=== PATIENT | female | born 1995 | race Caucasian/White ===

== ENCOUNTER 2019-12-25 10:22 | Emergency (ER) | payer OTHER ==
[2019-12-25 10:43] VITALS: TEMP 98.4; BMI 24.5
[2019-12-25] MEDS ORDERED: ONDANSETRON 4 MG/2 ML VIAL IVPUSH ONE (11:08)
[2019-12-25] MEDS ORDERED: SODIUM CHLORIDE 1,000 ML IV STA ×2 (11:08→13:40)
[2019-12-25] MEDS ORDERED: PANTOPRAZOLE SODIUM 40 MG VIAL IVPUSH ONE (11:12)
[2019-12-25] MEDS ORDERED: KETOROLAC TROMETHAMINE 30 MG/1 ML VIAL IVPUSH ONE (11:12)
[2019-12-25 11:39] LABS: EPI CELLS 5.3 /HPF (0-5/HPF); HYALINE CASTS 31 /lpf (0-8); URINE APPEARANCE CLOUDY; URINE BACTERIA 105.8 /hpf (NEGATIVE); URINE BILIRUBIN NEGATIVE (NEGATIVE); URINE COLOR DK YELLOW; URINE GLUCOSE (UA) NEGATIVE (NEGATIVE); URINE KETONE 3+ (NEGATIVE); URINE LEUK ESTERASE TRACE (NEGATIVE); URINE NITRITE NEGATIVE (NEGATIVE); URINE PROTEIN TRACE (NEGATIVE); URINE RBC 3 /hpf (0-4); URINE WBC 9 /hpf (0-5)
[2019-12-25] MEDS ORDERED: KETOROLAC TROMETHAMINE 30 MG/1 ML VIAL ONE (12:21)
[2019-12-25] MEDS ORDERED: ONDANSETRON 4 MG/2 ML VIAL ONE (12:22)
[2019-12-25] MEDS ORDERED: PANTOPRAZOLE SODIUM 40 MG VIAL ONE (12:22)
[2019-12-25 12:26] LABS: BASO % 0.3 % (0-2.0); EOS % 0.3 % (0-4.5); HEMATOCRIT 37.3 % (32.4-45.2); HEMOGLOBIN 13.2 GM/dL (10.7-15.3); LYMPH % 20.7 % (8-40); MCHC 35.3 g/dl (32.0-36.0); MEAN CELL VOLUME 96.5 fl (80-96); MEAN PLT VOLUME 9.1 fl (7.5-11.1); MONO % 4.6 % (3.8-10.2); NEUT % 74.1 % (42.8-82.8); PLATELET COUNT 189 K/MM3 (134-434); RBC 3.86 M/mm3 (3.60-5.2); RDW 11.7 % (11.6-15.6); WHITE BLOOD COUNT 5.1 K/mm3 (4.0-10.0)
[2019-12-25 12:54] LABS: ALBUMIN 4.1 g/dl (3.4-5.0); BILIRUBIN,TOTAL 0.6 mg/dL (0.2-1); BLOOD UREA NITROGEN 10.9 mg/dL (7-18); CALCIUM 9.3 mg/dL (8.5-10.1); CREATININE 0.7 mg/dL (0.55-1.3); POTASSIUM 4.1 mmol/L (3.5-5.1); TOT PROT 8.5 g/dl (6.4-8.2)
[2019-12-25] MEDS ORDERED: METOCLOPRAMIDE HCL INJECTION 10 MG/2 ML VIAL IVPUSH ONE (14:24)
[2019-12-25] MEDS ORDERED: METOCLOPRAMIDE HCL INJECTION 10 MG/2 ML VIAL ONE (14:26)
--- NOTE | 2019-12-25 15:15 | PDOC ---
History of Present Illness - General Chief Complaint: Pain, Acute Stated Complaint: NAUSEA/VOMITING Time Seen by Provider: 12/25/19 11:06 History Source: Patient Exam Limitations: No Limitations - History of Present Illness Travel History: No Initial Comments: 12/25/19 15:10 24-year-old female presents the ED with complaints of nausea and vomiting generalized fatigue for the past 4 days. Patient states is unable to tolerate anything but water and came to the ER for further evaluation. Patient denies recent travel, recent illness, fever or chills. Patient denies drinking history smoking history drug use, recent change in diet or weight loss Timing/Duration: reports: intermittent Quality: reports: mild, cramping Abdominal Pain Onset Location: reports: epigastric Pain Radiation: reports: no radiation Activities at Onset: reports: none Aggravating Factors: improves with: Eating Alleviating Factors: improves with: None Past History - Travel Traveled outside of the country in the last 30 days: No Close contact w/someone who was outside of country & ill: No - Past Medical History Allergies/Adverse Reactions: Allergies Allergy/AdvReac Type Severity Reaction Status Date / Time amoxicillin Allergy Verified 12/25/19 10:38 Home Medications: Ambulatory Orders Azithromycin 1 tab PO ASDIR 12/25/19 Norethindrone-E.estradiol-Iron [Lo Loestrin Fe 1-10 Tablet] 1 tab PO ASDIR 12/25 Pantoprazole Sodium [Protonix -] 40 mg PO DAILY 12/25/19 - Psycho Social/Smoking Cessation Hx Smoking History: Never smoked Hx Alcohol Use: No Drug/Substance Use Hx: No Patient Lives Alone: No Lives with/in: parents Review of Systems - Review of Systems Able to Perform ROS?: Yes Constitutional: No: Symptoms Reported HEENTM: No: Symptoms Reported Respiratory: No: Symptoms reported Cardiac (ROS): No: Symptoms Reported ABD/GI: Yes: Nausea, Poor Appetite, Abdominal cramping. No: Poor Fluid Intake Musculoskeletal: No: Symptoms Reported Integumentary: No: Symptoms Reported Neurological: No: Symptoms reported Hematologic/Lymphatic: No: Symptoms Reported *Physical Exam - Vital Signs Last Vital Signs Temp Pulse Resp BP Pulse Ox 98.4 F 118 H 18 109/64 100 12/25/19 10:41 12/25/19 10:41 12/25/19 10:41 12/25/19 10:41 12/25/19 10:41 - Physical Exam General Appearance: Yes: Nourished, Appropriately Dressed. No: Apparent Distress HEENT: positive: TMs Normal, Pharynx Normal (Dry). negative: Pale Conjunctivae Neck: positive: Supple Respiratory/Chest: positive: Lungs Clear, Normal Breath Sounds. negative: Respiratory Distress, Accessory Muscle Use Cardiovascular: positive: Regular Rhythm, Tachycardia. negative: Murmur Gastrointestinal/Abdominal: positive: Soft, Tenderness (Epigastric) Extremity: positive: Normal Range of Motion Integumentary: positive: Normal Color, Warm, Moist Neurologic: positive: Motor Strength 5/5 (Ambulatory) ED Treatment Course - LABORATORY CBC & Chemistry Diagram: 12/25/19 12:05 12/25/19 12:05 - ADDITIONAL ORDERS Additional order review: Laboratory Results 12/25/19 12/25/19 12/25/19 12:05 11:20 11:20 Sodium 138 Potassium 4.1 Chloride 105 Carbon Dioxide 25 Anion Gap 8 BUN 10.9 Creatinine 0.7 Est GFR (CKD-EPI)AfAm 142.54 Est GFR (CKD-EPI)NonAf 122.98 Random Glucose 97 Calcium 9.3 Total Bilirubin 0.6 AST 19 ALT 18 Alkaline Phosphatase 145 H Total Protein 8.5 H Albumin 4.1 Lipase 199 Urine Color Dk yellow Urine Appearance Cloudy Urine pH 6.0 Ur Specific [place] 1.024 Urine Protein Trace Urine Glucose (UA) Negative Urine Ketones 3+ H Urine Blood 2+ H Urine Nitrite Negative Urine Bilirubin Negative Urine Urobilinogen 1.0 Ur Leukocyte Esterase Trace Urine WBC (Auto) 9 Urine RBC (Auto) 3 Urine Casts (Auto) 31 U Epithel Cells (Auto) 5.3 Urine Bacteria (Auto) 105.8 Urine HCG, Qual Negative 12/25/19 12:05 RBC 3.86 MCV 96.5 H MCHC 35.3 RDW 11.7 MPV 9.1 Neutrophils % 74.1 Lymphocytes % 20.7 Monocytes % 4.6 Eosinophils % 0.3 Basophils % 0.3 - Medications Given in the ED: ED Medications Discontinued Medications Generic Name Dose Route Start Last Admin Trade Name Freq PRN Reason Stop Dose Admin Sodium Chloride 1,000 mls @ 1,000 mls/hr 12/25/19 11:08 12/25/19 12:31 Normal Saline - IV 12/25/19 12:07 1,000 mls/hr ASDIR STA Administration Sodium Chloride 1,000 mls @ 1,000 mls/hr 12/25/19 13:40 12/25/19 14:37 Normal Saline - IV 12/25/19 14:39 1,000 mls/hr ASDIR STA Administration Ketorolac Tromethamine 30 mg 12/25/19 11:12 12/25/19 12:32 Toradol Injection - IVPUSH 12/25/19 11:13 30 mg ONCE ONE Administration Metoclopramide HCl 10 mg 12/25/19 14:24 12/25/19 14:38 Reglan Injection - IVPUSH 12/25/19 14:25 10 mg ONCE ONE Administration Ondansetron HCl 4 mg 12/25/19 11:08 12/25/19 12:32 Zofran Injection IVPUSH 12/25/19 11:09 4 mg ONCE ONE Administration Pantoprazole Sodium 40 mg 12/25/19 11:12 12/25/19 12:32 Protonix Iv IVPUSH 12/25/19 11:13 40 mg ONCE ONE Administration Medical Decision Making - Medical Decision Making 12/25/19 13:13 Chief complaint: Nausea vomiting upper abdominal pain for the past 4 days. Patient unable to tolerate solids. Exam: Patient with epigastric tenderness. Tachycardic on exam, otherwise normal physical exam. Plan: Labs, urine, antiemetics, Toradol, IV fluids 12/25/19 14:14 Laboratory Tests 12/25/19 12/25/19 12/25/19 11:20 11:20 12:05 WBC 5.1 Hgb 13.2 Hct 37.3 Absolute Neuts (auto) 3.8 Sodium Potassium Chloride Carbon Dioxide Anion Gap BUN Creatinine Est GFR (CKD-EPI)AfAm Est GFR (CKD-EPI)NonAf Random Glucose Calcium Total Bilirubin AST ALT Alkaline Phosphatase Total Protein Albumin Lipase Urine Protein Trace Urine Glucose (UA) Negative Urine Ketones 3+ H Urine Blood 2+ H Urine Nitrite Negative Urine Bilirubin Negative Urine Urobilinogen 1.0 Ur Leukocyte Esterase Trace Urine WBC (Auto) 9 Urine RBC (Auto) 3 Urine Bacteria (Auto) 105.8 Urine HCG, Qual Negative 12/25/19 12:05 WBC Hgb Hct Absolute Neuts (auto) Sodium 138 Potassium 4.1 Chloride 105 Carbon Dioxide 25 Anion Gap 8 BUN 10.9 Creatinine 0.7 Est GFR (CKD-EPI)AfAm 142.54 Est GFR (CKD-EPI)NonAf 122.98 Random Glucose 97 Calcium 9.3 Total Bilirubin 0.6 AST 19 ALT 18 Alkaline Phosphatase 145 H Total Protein 8.5 H Albumin 4.1 Lipase 199 Urine Protein Urine Glucose (UA) Urine Ketones Urine Blood Urine Nitrite Urine Bilirubin Urine Urobilinogen Ur Leukocyte Esterase Urine WBC (Auto) Urine RBC (Auto) Urine Bacteria (Auto) Urine HCG, Qual Patient still continue with mild nausea. Patient ordered for second liter of fluid and Reglan. After we will do a p.o. challenge 12/25/19 15:15 Patient tolerated 2 apple juices along with crackers. Patient states feeling much better. Will discharge patient home with Zofran along with Reglan. Sister is a nurse and will be aware of side effects Discharge - Discharge Information Problems reviewed: Yes Clinical Impression/Diagnosis: Nausea & vomiting Condition: Improved Disposition: HOME - Follow up/Referral Referrals: García Lincoln MD [Primary Care Provider] - - Patient Discharge Instructions Patient Printed Discharge Instructions: Nausea and Vomiting-Adult Additional Instructions: Follow a bland diet for the next 48 to 72 hours then advance as tolerated. Drink plenty of fluids in small frequent amounts. Take Zofran as needed and if no improvement of nausea may take Reglan - Post Discharge Activity
[2019-12-25 15:22] VITALS: BP 103/66; PULSE 95
== END 2019-12-25 15:22 | disposition home or self-care (01) ==
LOC: JER 10:22
PROC: 3E0337Z Introduction of Electrolytic and Water Balance Substance into Peripheral Vein, Percutaneous Approach (ICD-10-PCS; principal; 2019-12-25)
PROC: 3E033GC Introduction of Other Therapeutic Substance into Peripheral Vein, Percutaneous Approach (ICD-10-PCS; 2019-12-25)
PROC: 3E033GC Introduction of Other Therapeutic Substance into Peripheral Vein, Percutaneous Approach (ICD-10-PCS; 2019-12-25)
PROC: 3E033GC Introduction of Other Therapeutic Substance into Peripheral Vein, Percutaneous Approach (ICD-10-PCS; 2019-12-25)
PROC: 3E0333Z Introduction of Anti-inflammatory into Peripheral Vein, Percutaneous Approach (ICD-10-PCS; 2019-12-25)
DX: R11.2 Nausea with vomiting, unspecified (principal)
CPT/HCPCS: 36415; 80053; 81003; 83690; 84703; 85025; 87086; 99284-25; J7030

== ENCOUNTER 2020-09-21 00:14 | Emergency (ER) | payer OTHER ==
[2020-09-21 00:24] VITALS: BMI 26.6
[2020-09-21] MEDS ORDERED: KETOROLAC TROMETHAMINE 30 MG/1 ML VIAL IVPUSH ONE (00:32)
[2020-09-21] MEDS ORDERED: SODIUM CHLORIDE 1,000 ML IV STA (00:32)
[2020-09-21] MEDS ORDERED: ONDANSETRON 4 MG/2 ML VIAL IVPB ONE (00:32)
[2020-09-21] MEDS ORDERED: KETOROLAC TROMETHAMINE 15 MG/ML VIAL ONE (00:46)
[2020-09-21] MEDS ORDERED: ONDANSETRON 4 MG/2 ML VIAL ONE (00:46)
[2020-09-21 01:10] LABS: BASO % 0.3 % (0-2.0); EOS % 1.6 % (0-4.5); HEMOGLOBIN 14.6 GM/dL (10.7-15.3); LYMPH % 16.1 % (8-40); MCH 33.5 pg (25.7-33.7); MCHC 34.8 g/dl (32.0-36.0); MEAN CELL VOLUME 96.3 fl (80-96); MEAN PLT VOLUME 9.4 fl (7.5-11.1); MONO % 6.6 % (3.8-10.2); NEUT % 75.4 % (42.8-82.8); PLATELET COUNT 233 K/MM3 (134-434); RBC 4.36 M/mm3 (3.60-5.2); RDW 12.1 % (11.6-15.6); WHITE BLOOD COUNT 11.6 K/mm3 (4.0-10.0)
[2020-09-21 01:29] LABS: POTASSIUM 3.7 mmol/L (3.5-5.1)
[2020-09-21 01:31] LABS: ALBUMIN 4.2 g/dl (3.4-5.0); BLOOD UREA NITROGEN 11.3 mg/dL (7-18); CALCIUM 9.5 mg/dL (8.5-10.1)
[2020-09-21 01:35] LABS: CREATININE 0.6 mg/dL (0.55-1.3)
[2020-09-21 01:36] LABS: BILIRUBIN,TOTAL 0.2 mg/dL (0.2-1); TOT PROT 7.7 g/dl (6.4-8.2)
[2020-09-21 01:44] LABS: URINE APPEARANCE CLEAR; URINE BILIRUBIN NEGATIVE (NEGATIVE); URINE COLOR YELLOW; URINE GLUCOSE (UA) NEGATIVE (NEGATIVE); URINE KETONE NEGATIVE (NEGATIVE); URINE LEUK ESTERASE NEGATIVE (NEGATIVE); URINE NITRITE NEGATIVE (NEGATIVE); URINE PROTEIN NEGATIVE (NEGATIVE); URINE UROBILINOGEN 0.2 mg/dL (0.2-1.0)
[2020-09-21 01:53] LABS: HCG,QUALITATIVE URINE Negative
[2020-09-21 02:41] VITALS: BP 106/68; PULSE 82; TEMP 98.7
== END 2020-09-21 02:49 | disposition home or self-care (01) ==
LOC: FER 00:14
PROC: 3E0333Z Introduction of Anti-inflammatory into Peripheral Vein, Percutaneous Approach (ICD-10-PCS; principal; 2020-09-21)
PROC: 3E023NZ Introduction of Analgesics, Hypnotics, Sedatives into Muscle, Percutaneous Approach (ICD-10-PCS; 2020-09-21)
PROC: 3E0337Z Introduction of Electrolytic and Water Balance Substance into Peripheral Vein, Percutaneous Approach (ICD-10-PCS; 2020-09-21)
DX: R11.2 Nausea with vomiting, unspecified (principal); R10.2 Pelvic and perineal pain; N83.209 Unspecified ovarian cyst, unspecified side
CPT/HCPCS: 36415; 76830-TC; 80053; 81003; 84703; 85025; 87086; 99285-25